=== PATIENT | female | born 1985 | race Caucasian/White ===

== ENCOUNTER 2017-03-19 17:38 | Emergency (ER) | payer OTHER ==
[2017-03-19 17:38] VITALS: BMI 40.4
[2017-03-19 17:46] VITALS: BP 126/66; PULSE 67; RESP 18; TEMP 99.1; O2SAT 99
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
== END 2017-03-19 19:17 | disposition home or self-care (01) ==
LOC: H.ER 17:38
DX: S09.90XA Unspecified injury of head, initial encounter (principal); M54.5 Low back pain; V89.2XXA Person injured in unspecified motor-vehicle accident, traffic, initial encounter; Y93.9 Activity, unspecified